=== PATIENT | male | born 1990 | race Two or more races ===

== ENCOUNTER 2019-11-30 22:05 | Emergency (ER) | payer BC ==
[2019-11-30 23:00] LABS: ABS Basophils 0.1 10^3/ul (0-0.2); ABS Eosinophils 0.2 10^3/ul (0-0.6); ABS Lymphocytes 2.5 10^3/ul (1.0-4.8); ABS Monocytes 0.5 10^3/ul (0-0.8); ABS Neutrophils 3.5 10^3/ul (1.5-7.7); Eosinophil % 3.6 %; Hematocrit 42 % (42-52); Hemoglobin 14.4 g/dL (14.0-18.0); Lymphocyte % 36.4 %; Mean Corpuscular HGB Conc 35 g/dL (31-36); Mean Corpuscular Hemoglobin 28 pg (27-31); Mean Corpuscular Volume 81 fL (80-94); Mean Platelet Volume 8.2 fL (7.4-10.4); Nucleated Red Blood Cells % 0.1; Platelet Count 239 10^3/uL (150-450); Red Cell Distribution Width 14 % (10-15); White Blood Count 6.9 10^3/uL (3.5-10.8)
[2019-11-30 23:17] LABS: Albumin 4.4 g/dL (3.2-5.2); Albumin/Globulin Ratio 1.5 (1-3); BUN/Creatinine Ratio 13.2 (8-20); C Reactive Protein 4.04 mg/L (<8.01); Calcium 9.2 mg/dL (8.6-10.3); EGFR African American 91.9 (>60); EGFR Non-African American 75.9 (>60); Globulin 2.9 g/dL (2-4); Potassium 3.8 mmol/L (3.5-5.0); Total Bilirubin 0.4 mg/dL (0.2-1.0); Total Protein 7.3 g/dL (6.4-8.9)
--- NOTE | 2019-11-30 23:34 | ED ---
Lower Extremity - HPI Summary HPI Summary: 29 year old male presents with rash to right leg. He states he noticed a potential bug bites couple days ago. he states on Friday he noticed a rash to the area. [facility] and placed on doxy[facility]ine. States that since then redness has spread. Taken 4 doses of doxycycline with last dose prior to arrival. woke up with increase redness today but the pain has decreased. No drainage from area. has history of MRSA but he denies any history of MRSA. No fevers or chills. Has no medical conditions. - History of Current Complaint Chief Complaint: EDExtremityLower Stated Complaint: CELLULITIS PER PT Time Seen by Provider: 11/30/19 22:25 Pain Intensity: 0 - Allergies/Home Medications Allergies/Adverse Reactions: Allergies Allergy/AdvReac Type Severity Reaction Status Date / Time No Known Allergies Allergy Verified 11/30/19 22:25 Home Medications: Home Medications DOXYcycline CAP(*) [DOXYcycline 100MG CAP(*)] 1 cap PO BID 11/30/19 [History Confirmed 11/30/19] PMH/Surg Hx/FS Hx/Imm Hx Endocrine/Hematology History: Denies: Hx Diabetes Cardiovascular History: Denies: Hx Hypercholesterolemia, Hx Hypertension Musculoskeletal History: Denies: Hx Rheumatoid Arthritis, Hx Osteoporosis - Cancer History Cancer Type, Location and Year: None reported - Surgical History Surgery Procedure, Year, and Place: None reported Infectious Disease History: Yes Infectious Disease History: Denies: Traveled Outside the [place] in Last 30 Days - Family History Known Family History: Negative: Cardiac Disease, Hypertension, Diabetes - Social History Alcohol Use: None Substance Use Type: Reports: None Hx Tobacco Use: No Smoking Status (MU): Never Smoked Tobacco Review of Systems Negative: Fever Negative: Chest Pain Negative: Shortness Of Breath Positive: Rash All Other Systems Reviewed And Are Negative: Yes Physical Exam Triage Information Reviewed: Yes Vital Signs On Initial Exam: Initial Vitals Temp Pulse Resp BP Pulse Ox 97.6 F 63 18 142/96 99 11/30/19 22:12 11/30/19 22:12 11/30/19 22:12 11/30/19 22:12 11/30/19 22:12 Vital Signs Reviewed: Yes Appearance: Positive: Well-Appearing Skin: Positive: Warm, Dry, Other - erythematous rash to right thigh that is warm to the touch Head/Face: Positive: Normal Head/Face Inspection Eyes: Positive: Normal, Conjunctiva Clear ENT: Positive: Pharynx normal Respiratory/Lung Sounds: Positive: Clear to Auscultation, Breath Sounds Present Cardiovascular: Positive: Normal, RRR Musculoskeletal: Positive: Normal, Other - good pulses Neurological: Positive: Normal Psychiatric: Positive: Normal Procedures - Sedation Patient Received Moderate/Deep Sedation with Procedure: No Diagnostics - Vital Signs Vital Signs Temp Pulse Resp BP Pulse Ox 11/30/19 22:12 97.6 F 63 18 142/96 99 - Laboratory Lab Results: Lab Results 11/30/19 11/30/19 11/30/19 Range/Units 22:50 22:50 22:50 WBC 6.9 (3.5-10.8) 10^3/uL RBC 5.10 (4.18-5.48) 10^6 /uL Hgb 14.4 (14.0-18.0) g/dL Hct 42 (42-52) % MCV 81 (80-94) fL MCH 28 (27-31) pg MCHC 35 (31-36) g/dL RDW 14 (10-15) % Plt Count 239 (150-450) 10^3/uL MPV 8.2 (7.4-10.4) fL Neut % (Auto) 51.1 % Lymph % (Auto) 36.4 % [place] % (Auto) 7.7 % Eos % (Auto) 3.6 % Baso % (Auto) 1.2 % Absolute Neuts (auto) 3.5 (1.5-7.7) 10^3/ul Absolute Lymphs (auto) 2.5 (1.0-4.8) 10^3/ul Absolute Monos (auto) 0.5 (0-0.8) 10^3/ul Absolute Eos (auto) 0.2 (0-0.6) 10^3/ul Absolute Basos (auto) 0.1 (0-0.2) 10^3/ul Absolute Nucleated RBC 0.0 10^3/ul Nucleated RBC % 0.1 Sodium 138 (135-145) mmol/L Potassium 3.8 (3.5-5.0) mmol/L Chloride 103 (101-111) mmol/L Carbon Dioxide 28 (22-32) mmol/L Anion Gap 7 (2-11) mmol/L BUN 15 (6-24) mg/dL Creatinine 1.14 (0.67-1.17) mg/dL Est GFR ( Amer) 91.9 (>60) Est GFR (Non-Af Amer) 75.9 (>60) BUN/Creatinine Ratio 13.2 (8-20) Glucose 110 H (70-100) mg/dL Lactic Acid 0.6 (0.5-2.0) mmol/L Calcium 9.2 (8.6-10.3) mg/dL Total Bilirubin 0.40 (0.2-1.0) mg/dL AST 16 (13-39) U/L ALT 15 (7-52) U/L Alkaline Phosphatase 61 (34-104) U/L C-Reactive Protein 4.04 (<8.01) mg/L Total Protein 7.3 (6.4-8.9) g/dL Albumin 4.4 (3.2-5.2) g/dL Globulin 2.9 (2-4) g/dL Albumin/Globulin Ratio 1.5 (1-3) Result Diagrams: 11/30/19 22:50 11/30/19 22:50 Lab Statement: Any lab studies that have been ordered have been reviewed, and results considered in the medical decision making process. - Ultrasound No standard instances Ultrasound Interpretation Completed By: Radiologist Summary of Ultrasound Findings: IMPRESSION: No sonographic findings to correlate with patient's symptomatology. Lower Extremity Course/Dx - Course Course Of Treatment: 29 year old male presents with rash to right leg. He states he noticed a potential bug bites couple days ago. he states on Friday he noticed a rash to the area. [facility] seen at [facility] and placed on doxycycline. States that since then redness has spread. Taken 4 doses of doxycycline with last dose prior to arrival. woke up with increase redness today but the pain has decreased. No drainage from area. has history of MRSA but he denies any history of MRSA. No fevers or chills. Has no medical conditions. On exam has erythema to right thigh that is warm to the touch. wbc normal. CRP normal. Ultrasound shows no abscess. told if redness presents tomorrow or develop fever to return. Patient understands and agrees with the plan. - Diagnoses Differential Diagnosis/HQI/PQRI: Positive: Cellulitis, Other - abscess, contact dermatitis Provider Diagnoses: Cellulitis of right leg Discharge ED - Sign-Out/Discharge Documenting (check all that apply): Patient Departure - Discharge Plan Condition: Good Disposition: HOME Patient Education Materials: Cellulitis (ED) Referrals: Immanuel Pope MD [Primary Care Provider] - Additional Instructions: take doxycycline as prescribed Take tyenlol or ibuprofen every 6 hours for pain follow up with primary within 3 days Return to ED if develop fever, chills, or any new or worsening symptoms - Billing Disposition and Condition Condition: GOOD Disposition: Home
[2019-11-30 23:50] VITALS: BP 125/82
== END 2019-11-30 23:52 | disposition home or self-care (01) ==
LOC: ED 22:05
DX: L03.115 Cellulitis of right lower limb (principal)
CPT/HCPCS: 36415; 80053; 83605; 85025; 86140; 87040; 99283